=== PATIENT | female | born 1975 | race Caucasian/White ===

== ENCOUNTER → 2017-07-20 | Outpatient (CLI) | payer OTHER ==
[~2017-07-20] MED LIST: ABL10 PO; COEN90TA PO; CYAN100073 PO; DICY10CA12 PO; DIPH25CA5 PO; DULO60CA44 PO; DVN/160 PO; GADAVIST IV PRN; HYDR-3714 PO; LORA-741 PO; MAGN400T6 PO; MELO7.5T5 PO; METF1000 PO; METH500T37 PO; MONT1TAB3 PO; PREG1CAP28 PO; PROC5TAB PO; PROM25TA9 PO; PROP10TA7 PO; RANI150T85 PO; TRAM-10 PO; TRAZ50TA35 PO; VITB2100 PO; VTMD1000 PO
--- NOTE | 2017-07-20 12:43 | DIAGNOSTIC IMAGING REPORT ---
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 TECHNIQUE: Multi axial acquisition pre and post gadolinium enhancement. COMPARISON STUDY: None FINDINGS: Diffusion-weighted images are unremarkable. No evidence for an acute ischemic event. Signal characteristics of the cerebellar as well as cerebral hemispheres are unremarkable. The ventricular system is midline. Sella and parasellar regions are unremarkable. Internal auditory canals are symmetric. No evidence for abnormal postcontrast enhancement. His note is made of mild mucosal thickening of the left maxillary sinus. IMPRESSION: 1. Normal MRI of the brain and internal auditory canals. 2. Mild mucosal thickening left maxillary sinus. The above report was generated using voice recognition software. It may contain grammatical, syntax or spelling errors. Electronically signed by: Rene August M.D. 07/20/2017 12:42 PM Dictated Date/Time: 07/20/2017 12:38 PM
== END | disposition home or self-care (01) ==
LOC: C.MRIBC 09:51
PROVIDERS: ATTEND Physician Assistant
DX: G43.709 Chronic migraine without aura, not intractable, without status migrainosus (principal); H93.19 Tinnitus, unspecified ear; H91.90 Unspecified hearing loss, unspecified ear; R42 Dizziness and giddiness